=== PATIENT | male | born 1965 | race Caucasian/White ===

== ENCOUNTER 2017-07-25 20:46 | Emergency (ER) | payer SELFPAY ==
[~2017-07-25] VITALS: Ht 157.5 cm; Wt 70.0 kg
[2017-07-25] MEDS ORDERED: SODIUM CHLORIDE 0.9% 1,000 ML IV ONE (21:14)
[2017-07-25 22:00] LABS: BASOPHILS % 0.2 % (0.0-2.0); HEMATOCRIT. 41.8 % (42.0-52.0); HEMOGLOBIN. 14.5 g/dL (14.0-18.0); LYMPHOCYTES % 31.6 % (20.0-50.0); MEAN CORPUSCULAR HEMOGLOBIN 30.4 pg (28.0-32.0); MEAN CORPUSCULAR VOLUME 87.3 fL (80.0-94.0); MONOCYTES % 9.1 % (2.0-8.0); NEUTROPHILS % 58.1 % (40.0-76.0); PLATELET 242 x1000/uL (130-400); RED BLOOD CELL COUNT 4.79 mill/uL (4.7-6.1); RED CELL DISTRIBUTION WIDTH 11.7 % (11.6-14.6)
[2017-07-25 22:10] LABS: CARBON DIOXIDE 27 mEq/L (21-32); CHLORIDE 108 mEq/L (98-107); ETHANOL BLOOD < 10 mg/dL
[2017-07-25] MEDS ORDERED: POTASSIUM CHLORIDE 20MEQ TABLET SR PO ONE (22:30)
[2017-07-25 23:30] VITALS: BP 137/82
[2017-07-26 00:43] LABS: CLARITY URINE CLEAR (CLEAR); COLOR URINE YELLOW (YELLOW); GLUCOSE URINE NEGATIVE (NEGATIVE); KETONES URINE TRACE (NEGATIVE); LEUKOCYTE ESTERASE URINE NEGATIVE (NEGATIVE); NITRITE URINE NEGATIVE (NEGATIVE); OCCULT BLOOD URINE 1+ (NEGATIVE); PROTEIN URINE NEGATIVE (NEGATIVE); SPECIFIC GRAVITY URINE 1.033 (1.005-1.030)
[2017-07-26 00:51] LABS: *AMPHETAMINES SCREEN URINE NEGATIVE (NEGATIVE); *BARBITURATES SCREEN URINE NEGATIVE (NEGATIVE); *BENZODIAZEPINES SCREEN URINE PRESUMTIVE POSITIVE (NEGATIVE); *COCAINE SCREEN URINE NEGATIVE (NEGATIVE); CANNABINOID URINE SCREEN PRESUMTIVE POSITIVE (NEGATIVE); METHADONE URINE SCREEN NEGATIVE (NEGATIVE); OPIATES URINE SCREEN NEGATIVE (NEGATIVE); PHENCYCLIDINE URINE SCREEN NEGATIVE (NEGATIVE)
== END 2017-07-25 23:39 | disposition home or self-care (01) ==
LOC: ER 21:20
DX: E87.6 Hypokalemia (principal); R42 Dizziness and giddiness
CPT/HCPCS: 36415; 80053; 80305; 81001; 85025; 85610; 93005; 96360; 96361; 99285; G0482; J7030; Z7610